=== PATIENT | male | born 1995 | race American Indian/Alaskan Native ===

== ENCOUNTER 2018-03-16 00:53 | Emergency (ER) | payer SELFPAY ==
[2018-03-16] MEDS ORDERED: TENIVAC IM ONE (02:23)
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
[2018-03-16] MEDS ORDERED: XYLOCAINE 2% INFILTRATI ONE (03:19)
[2018-03-16 06:58] VITALS: BP 116/67
== END 2018-03-16 07:04 | disposition home or self-care (01) ==
LOC: ED 00:53
DX: S61.215A Laceration without foreign body of left ring finger without damage to nail, initial encounter (principal); W22.8XXA Striking against or struck by other objects, initial encounter; Y93.89 Activity, other specified; Y92.89 Other specified places as the place of occurrence of the external cause; Y99.8 Other external cause status
CPT/HCPCS: 90471; 90714; 99283

== ENCOUNTER 2019-06-21 17:24 | Emergency (ER) | payer SELFPAY ==
--- NOTE | 2019-06-21 17:38 | Event Note ---
ED Screening Note Date of service: 06/21/19 Time: 17:36 ED Screening Note: This is a 24 y.o. M. that presents with pelvic pain and dysuria. Denies pelvic pain, penile discharge, testicular pain or swelling. This initial assessment/diagnostic orders/clinical plan/treatment(s) is/are subject to change based on patients health status, clinical progression and re- assessment by fellow clinical providers in the ED. Further treatment and workup at subsequent clinical providers discretion. Patient/guardian urged not to elope from the ED as their condition may be serious if not clinically assessed and managed. Initial orders include: UA
[2019-06-21 18:54] LABS: Bacteria,Urine 1+ /HPF (Negative)
[2019-06-21 18:55] LABS: Bilirubin,Urine NEG (Negative); Blood,Urine SM (Negative); Color,Urine Straw (Yellow); Protein,Urine <15 mg/dL mg/dL (Negative); Urobilinogen,Urine < 2.0 mg/dL (<2.0)
[2019-06-21 18:57] LABS: WBC,Urine > 182.0 /HPF (0.0-6.0)
--- NOTE | 2019-06-21 19:56 | Emergency Department Report ---
ED Dysuria HPI - HPI Chief Complaint: Urogenital-Male Stated Complaint: STD CHECK Time Seen by Provider: 06/21/19 17:34 Duration: 1 Day Severity: Mild Symptoms: Dysuria: Yes, Frequency: Yes, Suprapubic Pain: No, Flank Pain: No, Fever: No, Hematuria: No, Abdominal Pain: No, Previous UTI's: No Other History: Return to-year-old male presents with urinary frequency and sli ght discomfort when he urinates. Patient states he is circumcised and only has one sexual partner. He denies pain or discharge, scrotum testicular pain or swelling, fever, chills, nausea vomiting ED Review of Systems ROS: Stated complaint: STD CHECK Other details as noted in HPI Comment: All other systems reviewed and negative ED Past Medical Hx - Past Medical History Previous Medical History?: No - Surgical History Hx Appendectomy: Yes - Social History Smoking Status: Current Every Day Smoker Substance Use Type: Alcohol, Marijuana - Medications Home Medications: Home Medications Medication Instructions Recorded Confirmed Last Taken Type HYDROcodone/APAP 5-325 [[place] 1 each PO Q8H PRN #10 tablet 03/16/18 Unknown Rx 5/325] Fluconazole [Diflucan TAB] 150 mg PO ONCE #1 tablet 06/21/19 Unknown Rx Sulfamethoxazole/Trimethoprim 1 each PO BID #10 tablet 06/21/19 Unknown Rx [Bactrim DS TAB] Dysuria Exam - Exam General: Vital signs noted. No distress. Alert and acting appropriately. Exam: Yes Moist Mucous Membranes, No CVA Tenderness, No Abdominal Tenderness, No Rigidity or Guarding Labs: Lab Results 06/21/19 Range/Units Unknown Urine Color Straw (Yellow) Urine Turbidity Slightly-cloudy (Clear) Urine pH 8.0 H (5.0-7.0) Ur Specific [place] 1.008 (1.003-1.030) Urine Protein <15 mg/dl (Negative) mg/dL Urine Glucose (UA) Neg (Negative) mg/dL Urine Ketones Neg (Negative) mg/dL Urine Blood Sm (Negative) Urine Nitrite Neg (Negative) Urine Bilirubin Neg (Negative) Urine Ictotest Not Reportable Urine Urobilinogen < 2.0 (<2.0) mg/dL Ur Leukocyte Esterase Lg (Negative) Urine WBC (Auto) > 182.0 H (0.0-6.0) /HPF Urine RBC (Auto) 5.0 (0.0-6.0) /HPF Urine Bacteria (Auto) 1+ (Negative) /HPF Urine Yeast (Budding) Few /HPF ED Course Vital Signs 06/21/19 17:33 Temperature 98.2 F Pulse Rate 99 H Respiratory 18 Rate Blood Pressure 139/81 O2 Sat by Pulse 99 Oximetry ED Medical Decision Making - Medical Decision Making 24 year-old male presents with a bacterial urinary tract infection ED course: Patient received an Rocephin dose in the ED Urinalysis is positive for bacteria and [facility] and [place] I discussed this findings with the patient. I discussed the patient to make sure he completes all of the antibiotic dose even until symptoms resolve. Discussed with the patient to follow-up with [facility] or the health department for STD screening. Patient is in no acute distress, patient also has on instructions were given to him. Critical care attestation.: If time is entered above; I have spent that time in minutes in the direct care of this critically ill patient, excluding procedure time. ED Disposition Clinical Impression: UTI (urinary tract infection) Disposition: - TO HOME OR SELFCARE Is pt being admited?: No Does the pt Need Aspirin: No Condition: Stable Instructions: Urinary Tract Infection in Men (ED) Additional Instructions: Make sure to follow up with the primary care physician as discussed. Take all your medications as you've been prescribed. If you have any worsening symptoms or develop new symptoms please return to ED immediately. Prescriptions: Sulfamethoxazole/Trimethoprim [Bactrim DS TAB] 1 each PO BID #10 tablet Fluconazole [Diflucan TAB] 150 mg PO ONCE #1 tablet Referrals: PRIMARY CAREMD [Primary Care Provider] - 3-5 Days [facility] [Outside] - 3-5 Days [facility] [Outside] - 3-5 Days Forms: Accompanied Note, Work/School Release Form(ED) Time of Disposition: 21:16
[2019-06-21] MEDS ORDERED: ROCEPHIN IM ONE (20:17)
[2019-06-21] MEDS ORDERED: XYLOCAINE 1% MPF 5 mL INFILTRATI ONE (20:17)
[2019-06-21 21:41] VITALS: BP 128/64
== END 2019-06-21 21:41 | disposition home or self-care (01) ==
LOC: ED 17:24
DX: N39.0 Urinary tract infection, site not specified (principal); F17.200 Nicotine dependence, unspecified, uncomplicated; F12.10 Cannabis abuse, uncomplicated; Z90.49 Acquired absence of other specified parts of digestive tract; Z79.899 Other long term (current) drug therapy
CPT/HCPCS: 81001; 99283; J0696